=== PATIENT | female | born 1985 ===

== ENCOUNTER 2021-05-08 19:41 | Emergency (ER) | payer MEDICAID ==
[~2021-05-08] VITALS: Ht 172.7 cm; Wt 66.0 kg
[2021-05-08 21:44] LABS: CLARITY URINE CLOUDY (CLEAR); COLOR URINE DARK YELLOW (YELLOW); KETONES URINE 1+ (NEGATIVE); LEUKOCYTE ESTERASE URINE 2+ (NEGATIVE); NITRITE URINE POSITIVE (NEGATIVE); OCCULT BLOOD URINE TRACE (NEGATIVE); PH URINE 5.5 (4.5-8.0); PROTEIN URINE 1+ (NEGATIVE); SPECIFIC GRAVITY URINE 1.017 (1.005-1.030)
[2021-05-08] MEDS ORDERED: PHENOBARBITAL SODIUM 130MG/ML 1ML IV SCH (22:15)
[2021-05-08] MEDS ORDERED: FOLIC ACID 1MG TABLET PO SCH (22:15)
[2021-05-08] MEDS ORDERED: SODIUM CHLORIDE 0.9% 1000ML BAG (SEPSIS BOLUS) IV ONE (22:15)
[2021-05-08] MEDS ORDERED: PHENOBARBITAL IV NR (22:30)
[2021-05-08] MEDS ORDERED: SODIUM CHLORIDE 0.9% IV NR (22:30)
[2021-05-08 22:48] LABS: BASOPHILS % 0.5 % (0.0-2.0); EOSINOPHILS % 0.1 % (0.0-5.0); HEMATOCRIT. 47.1 % (36.0-48.0); LYMPHOCYTES % 28.2 % (20.0-50.0); MEAN CORPUSCULAR VOLUME 106.2 fL (81.0-99.0); NEUTROPHILS % 65.2 % (40.0-76.0); PLATELET 341 x1000/uL (130-400); RED BLOOD CELL COUNT 4.43 mill/uL (4.2-5.4); RED CELL DISTRIBUTION WIDTH 13.4 % (11.6-14.6)
[2021-05-08 22:51] LABS: CHLORIDE 105 mEq/L (98-107)
[2021-05-08 23:08] LABS: ETHANOL BLOOD 364 mg/dL
[2021-05-09] MEDS ORDERED: CHLORDIAZEPOXIDE 25MG CAPSULE PO ONE (02:00)
[2021-05-09] MEDS ORDERED: L25 MT (02:37)
[2021-05-09 04:43] VITALS: BP 99/68
== END 2021-05-09 04:59 | disposition home or self-care (01) ==
LOC: ER 19:41
DX: F10.239 Alcohol dependence with withdrawal, unspecified (principal); Y90.8 Blood alcohol level of 240 mg/100 ml or more; Z88.0 Allergy status to penicillin
CPT/HCPCS: 36415; 80053; 80320; 81003; 83690; 85025; 96361; 96365; 99285; J2560; J7030; G0480